=== PATIENT | male | born 1995 | race Two or more races ===

== ENCOUNTER 2024-12-17 21:10 | Emergency (ER) | payer MEDICAID, OTHER ==
[~2024-12-17] VITALS: Ht 182.9 cm; Wt 92.4 kg
--- NOTE | 2024-12-17 23:40 | DVH ---
CLINICAL INDICATION: RING FINGER INJURY TECHNIQUE: radiographic views of the were obtained. Comparison: None FINDINGS/IMPRESSION: Single AP radiograph of the right hand demonstrates no osseous or joint abnormality.
[2024-12-18] MEDS ORDERED: IBUP-1456 PO
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
[2024-12-18 00:25] VITALS: BP 109/71; PULSE 60; RESP 17; TEMP 97.7; O2SAT 97
[2024-12-18] MEDS: HYDROcodone-ACET 5/325MG TAB PO ONE (00:25)
== END 2024-12-18 01:01 | disposition home or self-care (01) ==
LOC: ER 21:10
DX: S62.634A Displaced fracture of distal phalanx of right ring finger, initial encounter for closed fracture (principal); Z88.0 Allergy status to penicillin; Z59.00 Homelessness unspecified; Y08.89XA Assault by other specified means, initial encounter; Y93.89 Activity, other specified; Y92.89 Other specified places as the place of occurrence of the external cause; Y99.8 Other external cause status
CPT/HCPCS: 29130; 73130